=== PATIENT | female | born 1945 | race Caucasian/White ===

== ENCOUNTER → 2018-10-23 | Outpatient (CLI) | payer MEDICARE ==
--- NOTE | 2018-10-23 11:03 | US ---
EXAMINATION TYPE: US abdomen complete DATE OF EXAM: 10/23/2018 COMPARISON: 10/06/2010 CLINICAL HISTORY: 73-year-old female R19.01 Rt. Upper quadrant pain and swelling; gallbladder removed ; renal stones per patient; COPD; HT 4'11, WT 170lbs; patient stated right abdomen feels brooks than left side. TECHNIQUE: Multiple sonographic images of the abdomen are obtained. FINDINGS: EXAM MEASUREMENTS: Liver Length: 19.7 cm Gallbladder Wall: surgically removed CBD: 0.3 cm Spleen: 7.6 cm Right Kidney: 10.5 x 6.4 x 4.1 cm Left Kidney: 12.3 x 4.9 x 3.9 cm Pancreas: Limited visualization of the pancreatic head and tail due to shadowing from bowel gas. Liver: Enlarged and slightly echogenic. Gallbladder: absent Evidence for sonographic Tatum's sign: no CBD: wnl Spleen: wnl Right Kidney: wnl Left Kidney: larger than right; inferior pole hyperechoic shadowing stone is seen =0.8 x 1.0 x 0.5cm Upper IVC: wnl Abd Aorta: Upper abdominal aorta ectatic and 2.9 cm. Focal dilatation at the mid aorta = 3.2 x2.7 x 3.9cm with calcified wall plaque seen here then lumen narrows and difficult to follow distally toward s umbilicus. IMPRESSION: 1. Hepatomegaly (19.7 cm) with moderate fatty infiltration suggested. 2. Status post cholecystectomy. No biliary ductal dilatation. 3. 1 cm shadowing calculus at the lower pole of the left kidney.
== END | disposition home or self-care (01) ==
LOC: RADUSWWP 07:19
PROVIDERS: ATTEND Family Medicine
DX: N20.0 Calculus of kidney (principal); R16.0 Hepatomegaly, not elsewhere classified; R19.01 Right upper quadrant abdominal swelling, mass and lump; Z90.49 Acquired absence of other specified parts of digestive tract
CPT/HCPCS: 76700

== ENCOUNTER → 2018-11-05 | Outpatient (CLI) | payer MEDICARE ==
--- NOTE | 2018-11-05 11:20 | ECHOF ---
Referral Reason:R60.9 edema MEASUREMENTS -------- HEIGHT: 132.1 cm WEIGHT: 80.7 kg BP: IVSd: 1.0 cm (0.6 - 1.1) LVIDd: 3.3 cm (3.9 - 5.3) LVPWd: 1.2 cm (0.6 - 1.1) IVSs: 1.2 cm LVIDs: 2.0 cm LVPWs: 1.5 cm Ao Diam: 3.3 cm (2.0 - 3.7) AV Cusp: 1.6 cm (1.5 - 2.6) LA Diam: 2.4 cm (2.7 - 3.8) MV EXCURSION: 14.577 mm (> 18.000) MV EF SLOPE: 42 mm/s (70 - 150) EPSS: 1.1 cm MV E Joss: 0.70 m/s MV DecT: 161 ms MV A Joss: 1.05 m/s MV E/A Ratio: 0.67 RAP: 5.00 mmHg RVSP: 14.73 mmHg FINDINGS -------- Sinus rhythm. This was a technically difficult study with suboptimal views. The left ventricular size is normal. Left ventricular wall thickness is normal. Overall left vent ricular systolic function is normal with, an EF between 55 - 60 %. Lumason used Interatrial and interventricular septum intact. The aortic valve is trileaflet and appears structurally normal. There is trace mitral regurgitation. Mild tricuspid regurgitation present. The right ventricular systolic pressure, as measured by Doppl er, is 14.73mmHg. The pulmonic valve was not well visualized. The aortic root size is normal. IVC Not well visulized. There is no pericardial effusion. CONCLUSIONS -------- 1. Sinus rhythm. 2. This was a technically difficult study with suboptimal views. 3. The left ventricular size is normal. 4. Left ventricular wall thickness is normal. 5. Overall left ventricular systolic function is normal with, an EF between 55 - 60 %. 6. Lumason used 7. Interatrial and interventricular septum intact. 8. The aortic valve is trileaflet and appears structurally normal. 9. There is trace mitral regurgitation. 10. Mild tricuspid regurgitation present. 11. The right ventricular systolic pressure, as measured by Doppler, is 14.73mmHg. 12. The pulmonic valve was not well visualized. 13. The aortic root size is normal. 14. IVC Not well visulized. 15. There is no pericardial effusion. PROFESSIONAL HOUSING CONSULTANT: Esther Baldwin RDCS
== END ==
LOC: RADECHMAIN 08:11
PROVIDERS: ATTEND Family Medicine
DX: R60.9 Edema, unspecified (principal)
CPT/HCPCS: C8929; Q9950; 93306